=== PATIENT | male | born 1980 | race Caucasian/White ===

== ENCOUNTER 2016-09-30 09:11 | Outpatient (CLI) | payer OTHER ==
[2016-09-30] MEDS ORDERED: IOTHALAMATE MEGLUMINE 50 ML VIAL IU ONE (10:43)
[2016-09-30] MEDS ORDERED: GADOPENTETATE DIMEGLUMINE 5 ML VIAL IVP ONE (10:43)
[2016-09-30] MEDS ORDERED: BUFFERED LIDOCAINE 10 ML SYRINGE IU ONE (10:43)
== END 2016-09-30 09:12 | disposition home or self-care (01) ==
DX: M25.532 Pain in left wrist (principal); S63.592A Other specified sprain of left wrist, initial encounter; M94.8X3 Other specified disorders of cartilage, forearm
CPT/HCPCS: 20610; 73222; 77002; Q9961

== ENCOUNTER 2017-12-05 16:23 | Outpatient (CLI) | payer OTHER ==
--- NOTE | 2017-12-06 13:34 | MRI Report ---
EXAM: MRI LUMBAR SPINE WITHOUT CONTRAST EXAM DATE: 12/05/2017 04:54 PM. CLINICAL HISTORY: Low back pain, other nerve root and plexus disorder. COMPARISON: MRI lumbar spine 04/03/2012. TECHNIQUE: Multiplanar, multisequence T1-weighted and fluid-sensitive sequences of the lumbar spine without contrast. Other: None. FINDINGS: No suspicious marrow replacement has developed in the lumbar vertebral bodies. The distal tip of the conus medullaris is seen at the inferior L1 endplate. Grade 1 retrolisthesis of L5 relative to S1 and loss of disk space height at L5-S1 are stable. T11 through L4: No posterior disk protrusion. L4-L5: A minimal posterior disk protrusion is seen. Superior lateral recess narrowing is present bila terally. This is stable. L5-S1: A shallow foraminal protrusion is seen bilaterally. Mild to moderate left foraminal stenosis i s stable. Disk material in the right foramen has increased and there has been development of mild for aminal stenosis involving the far lateral foramen. There is a far lateral disk protrusion bilaterally . This appears slightly increased on the right. Facet/ligamentum flavum hypertrophy in the mid and lower lumbar spine is stable. A nerve root sleeve cyst at L2-L3 on the left is stable. IMPRESSION: 1. Slight increase in the foraminal and far lateral component to the disk protrusion on the right wit h development of far lateral foraminal stenosis on the right at L5-S1. 2. Foraminal stenosis on left at L5-S1 is stable. 3. Posterior disk protrusion that L4-L5 and L5-S1 are stable. Comment: The following findings are so common in adults without low back pain that while we report th eir presence, they must be interpreted with caution and in the context of the clinical situation. (Re rosamaria Tompkins et al, Spine 2001) Prevalence of findings in patients without low back pain: Disk degeneration (any evidence): 92% Disk desiccation/T2 signal loss: 83% Disk height loss: 56% Disk bulge: 64% Disk protrusion: 32% Annular tear/high intensity zone: 38% [facility] Referring Provider Line: [phone] SITE ID: [id number]
== END 2017-12-05 16:24 | disposition home or self-care (01) ==
LOC: DI 16:23
PROVIDERS: ATTEND Student in an Organized Health Care Education/Training Program
DX: M51.26 Other intervertebral disc displacement, lumbar region (principal); M51.27 Other intervertebral disc displacement, lumbosacral region; M47.896 Other spondylosis, lumbar region; M43.17 Spondylolisthesis, lumbosacral region
CPT/HCPCS: 72148

== ENCOUNTER 2018-02-01 09:52 | Outpatient (CLI) | payer OTHER ==
--- NOTE | 2018-02-02 11:28 | MRI Preliminary Report ---
Exam: MRI THORACIC SPINE W/O Impressions: 1. Unremarkable study as detailed. [facility] SITE ID: [id number]
--- NOTE | 2018-02-02 11:29 | MRI Report ---
EXAM: MRI THORACIC SPINE WITHOUT CONTRAST EXAM DATE: 02/01/2018 11:01 AM. CLINICAL HISTORY: Chronic back pain. COMPARISONS: Prior MRI lumbar spine 12/05/2017, prior MRI thoracic spine 03/31/2016. TECHNIQUE: Multiplanar, multisequence T1-weighted and fluid-sensitive sequences of the thoracic spine from C7 to L1 without contrast. Other: None. Findings: Relevant images are indicated (image number, series number). There is normal alignment of the thoracic spine, there is normal appearance of the thoracic cord. The re is no canal stenosis or neural foramina narrowing, there are no suspicious marrow lesions. There a re no significant degenerative changes of the thoracic spine. There is no thoracic paraspinal mass or collection. Surrounding skeletal muscles are unremarkable. Visualized lung lee are unremarkable. Partly visualized kidneys are unremarkable. There is no juan r-facet edema. Impressions: 1. Unremarkable study as detailed. [facility] Referring Provider Line: [phone] SITE ID: [id number]
== END 2018-02-01 09:53 | disposition home or self-care (01) ==
LOC: DI 09:52
PROVIDERS: ATTEND Orthopaedic Surgery
DX: M54.6 Pain in thoracic spine (principal)
CPT/HCPCS: 72146

== ENCOUNTER 2018-03-15 13:47 | Outpatient (CLI) | payer OTHER ==
--- NOTE | 2018-03-15 20:03 | MRI Report ---
Procedure Date: 03/15/2018 Accession Number: [id number] / [id number] Procedure: MRI - Cervical Spine W/O CPT Code: FULL RESULT: EXAM: MRI CERVICAL SPINE WITHOUT CONTRAST EXAM DATE: 03/15/2018 02:12 PM. CLINICAL HISTORY: CERVICALGIA. COMPARISONS: None. TECHNIQUE: Multiplanar, multisequence T1-weighted and fluid-sensitive sequences of the cervical spine without contrast. Other: None. FINDINGS: Neurologic Structures: The visualized posterior fossa structures are unremarkable. No signal abnormality in the visualized spinal cord. Alignment: Normal alignment. No spondylolisthesis. Bone Marrow: No gross fractures or bone lesions. No marrow edema. Interspace Levels/Facets: C1-C2: Unremarkable. C2-C3: Annular disk bulge with broad-based right paracentral and foraminal disk protrusion with osteophyte formation and uncinate hypertrophy. Mild right greater than left degenerative facet arthropathy. Minimal right foraminal narrowing. Mild effacement of the thecal sac. C3-C4: Disk height loss. Annular disk bulge with broad-based central and right greater than left foraminal protrusions with osteophyte formation and uncinate hypertrophy. Moderate left and mild right facet arthropathy. Annular fissure. Mild central canal stenosis. Moderate right greater than left foraminal stenosis. C4-C5: Mild to moderate degenerative facet arthropathy. No significant stenosis. C5-C6: Annular disk bulge. Superimposed broad-based right paracentral and foraminal disk protrusion and osteophyte formation with small uncinate hypertrophy. Mild facet arthropathy. Slight indentation upon the right anterior aspect of the cervical spinal cord. Moderate central canal stenosis. Moderate right foraminal stenosis. C6-C7: Annular disk bulge with broad-based superimposed left paracentral protrusion and tiny annular fissure. Mild central canal stenosis. Mild left foraminal stenosis. C7-T1: Moderate degenerative facet arthropathy. No stenosis. Musculature: Normal. No edema or fatty atrophy. Other: The paravertebral and prevertebral soft tissues are normal. IMPRESSION: 1. Multilevel cervical degenerative disk and facet arthropathy. 2. C3-C4 mild central canal stenosis. Moderate right greater left foraminal stenosis. 3. C5-C6 moderate central canal stenosis and moderate right foraminal stenosis. 4. C6-C7 mild central canal stenosis and mild left foraminal stenosis. [facility]
== END 2018-03-15 13:48 | disposition home or self-care (01) ==
LOC: DI 13:47
PROVIDERS: ATTEND Orthopaedic Surgery
DX: M50.21 Other cervical disc displacement, high cervical region (principal); M50.31 Other cervical disc degeneration, high cervical region; M47.892 Other spondylosis, cervical region; M48.02 Spinal stenosis, cervical region
CPT/HCPCS: 72141

== ENCOUNTER 2018-03-16 13:02 | Outpatient (CLI) | payer OTHER ==
[2018-03-16] MEDS ORDERED: GADOPENTETATE DIMEGLUMINE 5 ML VIAL IVP ONE (13:49)
[2018-03-16] MEDS ORDERED: IOTHALAMATE MEGLUMINE 50 ML VIAL ONE (13:49)
--- NOTE | 2018-03-16 15:01 | XRAY Report ---
Procedure Date: 03/16/2018 Accession Number: [id number] / [id number] Procedure: FL - Arthrogram Needle Placement CPT Code: FULL RESULT: EXAM: Arthrogram Needle Placement DATE: 03/16/2018 2:45 PM CLINICAL HISTORY: PAIN IN RIGHT SHOULDER Following obtaining informed consent, the patient's right shoulder was prepped and draped in the usual sterile fashion. The skin and soft tissues were anesthetized with lidocaine. A spinal needle was inserted into the glenohumeral joint, and following confirmation of needle positioning, a combination of iodinated contrast, dilute gadolinium, and lidocaine was injected intra-articularly. The patient tolerated the procedure well. No immediate complications. IMPRESSION: Successful fluoroscopic guided injection into the right shoulder for MRI arthrogram. Fluoroscopy time: 34 seconds; one spot image obtained.
--- NOTE | 2018-03-16 22:01 | MRI Report ---
Procedure Date: 03/16/2018 Accession Number: [id number] / [id number] Procedure: MRI - Arthrogram Shoulder RT CPT Code: FULL RESULT: EXAM: RIGHT SHOULDER MRI ARTHROGRAM WITH CONTRAST. EXAM DATE: 03/16/2018 02:41 PM. CLINICAL HISTORY: Pain in right shoulder. COMPARISON: None. TECHNIQUE: Multiplanar, multisequence T1-weighted and fluid-sensitive sequences of the shoulder after an arthrographic injection of dilute gadolinium, dictated under a separate exam. Other: None. FINDINGS: Rotator cuff: Partial thickness contrast filling distal articular surface and insertional tear involving the posterior supraspinatus and upper infraspinatus measuring approximately 1.5 cm anteroposterior and 2 cm medial to lateral. The tear involves slightly greater than 50% of the thickness of the insertion. No full-thickness tear. There is moderate atrophy and fatty replacement of the teres minor muscle. Remaining rotator cuff muscles demonstrate no atrophy. Long head biceps tendon: Thin but intact long head biceps tendon demonstrating normal course, signal and morphology. Labrum: Tiny linear contrast filling tear at the inferior labrum. Remainder of the labrum appears intact. Bones and articular surfaces: No significant articular cartilage defects. Subcortical edema adjacent to the rotator cuff tear. Acromioclavicular joint: Moderate degenerative change. Type II acromion. IMPRESSION: 1. High-grade partial-thickness distal articular surface and insertional tear at the junction of the supraspinatus and infraspinatus measuring 1.5 x 2.0 cm. 2. Moderate atrophy and fatty replacement of the teres minor muscle. 3. Tiny contrast filling tear at the inferior labrum. [facility] MUSCULOSKELET[facility] SECTION
== END 2018-03-16 13:03 | disposition home or self-care (01) ==
LOC: DI 13:02
PROVIDERS: ATTEND Student in an Organized Health Care Education/Training Program
DX: M75.101 Unspecified rotator cuff tear or rupture of right shoulder, not specified as traumatic (principal); S43.491A Other sprain of right shoulder joint, initial encounter; M62.511 Muscle wasting and atrophy, not elsewhere classified, right shoulder
CPT/HCPCS: 23350; 73222; 77002; Q9961

== ENCOUNTER 2018-07-27 06:13 | Day surgery (SDC) | payer OTHER ==
[2018-07-27] MEDS ORDERED: cefTRIAXone 2 GM VIAL ONE ×2 (06:28→12:16)
[2018-07-27] MEDS ORDERED: LACTATED RINGERS 1,000 ML IV ONE ×4 (06:33→13:12)
--- NOTE | 2018-07-27 07:01 | ANESTHESIA ---
Pre-Anesthesia VS, & Labs - Diagnosis Right Shoulder rotator cuff tear, biceps tendonitis - Procedure Right Shoulder arthroscopy, rotator cuff repair, biceps tenodesis Vital Signs: Temp Pulse Resp BP Pulse Ox 36.2 C L 71 18 137/98 H 100 07/27/18 06:39 07/27/18 06:39 07/27/18 06:39 07/27/18 06:39 07/27/18 06:39 Height 6 ft 2 in Weight (kg) 95.71 kg Body Mass Index 28.8 - NPO >8 hours Home Medications and Allergies Home Medications: Ambulatory Orders Cetirizine [ZyrTEC] 10 mg PO DAILY 07/24/18 Omeprazole 20 mg PO PRN 07/24/18 Cetirizine [ZyrTEC] 10 mg PO DAILY 07/24/18 Omeprazole 20 mg PO PRN 07/24/18 Allergies/Adverse Reactions: Allergies Allergy/AdvReac Type Severity Reaction Status Date / Time No Known Drug Allergies Allergy Verified 07/24/18 09:36 Anes History & Medical History - Anesthetic History Anesthesia Complications: reports: No previous complications Family history of Anesthesia Complications: Denies Family history of Malignant Hyperthermia: Denies - Medical History Cardiovascular: reports: None Pulmonary: reports: Sleep apnea (Does not use cpap) Gastrointestinal: reports: GERD (Controlled with meds) Urinary: reports: None Neuro: reports: None Endocrine/Autoimmune: reports: None Skin: reports: None Smoking Status: Never smoker Psychosocial: reports: No issues indicated - Surgical History Orthopedic: Other (Left arm fracture) Exam General: Alert, Oriented x3, Cooperative, No acute distress Dental: WNL Mouth Openin Fingerbreadth Neck Mobility: Normal Mallampati classification: II Thyromental Distance: 4-6 cm Respiratory: Lungs clear, Normal breath sounds, No respiratory distress, No accessory muscle use Cardiovascular: Regular rate, Normal S1, Normal S2, No murmurs Mental/Cognitive Status: Alert/Oriented X3, Normal for patient Cognitive Status: Within normal limits Plan Anesthesia Type: General, Interscalene Block (Right ISB) Regional Block: Per Surgeon's request for Post Op pain control Consent for Procedure(s) Verified and Reviewed: Yes Code Status: Attempt Resuscitation ASA classification: 2-Mild systemic disease Is this case an emergency?: No
[2018-07-27] MEDS ORDERED: EPINEPHrine 1 MG/ML AMP ONE ×2 (08:20→09:45)
[2018-07-27] MEDS ORDERED: ePHEDrine 50 MG/ML VIAL IVP ONE (08:56)
[2018-07-27] MEDS ORDERED: DEXAMETHASONE 4 MG/ML VIAL IVP ONE (08:56)
[2018-07-27] MEDS ORDERED: PROPOFOL 200 MG/20 ML VIAL IVP ONE (08:56)
[2018-07-27] MEDS ORDERED: MIDAZOLAM 2 MG/2 ML VIAL IVP ONE (08:56)
[2018-07-27] MEDS ORDERED: ROPIVACAINE 0.5% PF 20 ML AMPULE EP ONE (08:56)
[2018-07-27] MEDS ORDERED: ONDANSETRON 4 MG/2 ML VIAL IVP ONE (08:56)
[2018-07-27] MEDS ORDERED: ROCURONIUM 50 MG/5 ML VIAL IVP ONE (08:56)
[2018-07-27] MEDS ORDERED: fentaNYL 100 MCG/2 ML VIAL IVP ONE (08:56)
[2018-07-27] MEDS ORDERED: BUPIVACAINE 0.25% PF 30 ML VIAL ONE (08:59)
[2018-07-27] MEDS ORDERED: BUPIVACAINE 0.5% PF 30 ML VIAL SUBQ ONE (10:03)
[2018-07-27] MEDS ORDERED: EPINEPHrine 1 MG/1 ML 30 ML MDV IVP ONE (10:04)
[2018-07-27] MEDS ORDERED: EPINEPHrine 1 MG/1 ML 30 ML MDV IV ONE (10:04)
[2018-07-27] MEDS ORDERED: BUPIVACAINE 0.25% PF 30 ML VIAL SUBQ ONE (12:20)
[2018-07-27] MEDS ORDERED: ONDANSETRON 4 MG/2 ML VIAL IVP PRN (12:42)
[2018-07-27] MEDS ORDERED: oxyCODONE 5 MG TABLET PO PRN (12:42)
[2018-07-27] MEDS: HYDROmorphone 1 MG/ML CARPUJECT ONE ×2 (13:09→13:21)
[2018-07-27] MEDS ORDERED: oxyCODONE 5 MG TABLET ONE (14:13)
[2018-07-27 14:42] VITALS: BP 123/80
--- NOTE | 2018-07-27 15:29 | OPERATIVE REPORT ---
Operative Report - General Planned Procedure: Right rotator cuff repair. Right biceps tenodesis Pre-Op Diagnosis: Right rotator cuff tear. Right biceps tendinitis Procedure Performed: Arthroscopic right shoulder subacromial decompression and diagnostic arthroscopy. Mini open right rotator cuff repair. Mini open right biceps tenodesis Post Op Diagnosis: Same - Procedure Note Primary Surgeon: Chel Secondary Surgeon: Sundeep ROSARIO Estimated Blood Loss (mL): 50 Complications: None - Other Other Information/Narrative: DETAILED PROCEDURE: Right shoulder diagnostic arthroscopy Right shoulder subacromial decompression Right shoulder mini open rotator cuff repair Right shoulder mini open biceps tenodesis IMPLANTS: Arthrex corkscrew x2 Arthrex swivel lock x2 Arthrex fiber leak x1 Arthrex suture tack x1 POSTOPERATIVE PLAN: 0-2 weeks-Sling at all times. Pendulum exercises 5 times per day. 2-6 weeks-Passive range of motion with the following limits: FF to 90, ER to unlimited, abduction to 90 6-12 weeks-Active range of motion in all planes without limitation. Isometric rotator cuff strengthening is allowed 12-16 weeks-Gradually increase strengthening 16 weeks and beyond-Introduce dynamic activities EXAMINATION UNDER ANESTHESIA: ROM: Full Anterior load and shift: Stable Posterior load and shift: Stable Inferior sulcus: Stable ARTHROSCOPIC FINDINGS: Rotator interval: Intact Biceps tendon & SLAP: Type II SLAP tear with biceps tendon diminutive Subscapularis: Intact Rotator Cuff: Tear of 70% of the infraspinatus extending to teres minor. The posterior portion of supraspinatus was also torn. The tear was completed and repaired with a double row HAGL: None Labrum: Circumferential crack was seen but the labrum was stable Glenoid Cartilage: Soft but intact Humeral Head Cartilage: Intact INDICATION FOR SURGERY: 38-year-old male with over 1 year of shoulder pain weakness. He has failed nonoperative treatment to include physical therapy and injections. His examination and MRI showed a rotator cuff tear.. Nonoperative managment failed to resolve symptoms. The risks, benefits, and alternatives were discussed. Risks included pain, bleeding, infection, damage to nearby structures, lack of symptom relief, implant complications, stiffness, need for further surgeries, DVT, PE, stroke, and even . He signed a written consent form. PROCEDURE IN DETAIL: The patient was met in the preoperative holding on the day of the procedure. Operative extremity was signed. Consent was verified. He desired to proceed. Regional anesthesia was obtained in the preoperative area. He was brought to the operating room and surrendered to anesthesia. Once gene ral anesthesia was obtained he was placed in the beachchair position. All bony prominences were well-padded. He was then prepped and draped in the standard sterile fashion. A surgical timeout was held to confirm the patient procedure, identity, procedure, laterality, allergies, images, and antibiotics. All were in agreement we proceeded. I then removed all instruments and placed the trocar into the subacromial space just under the acromion. The camera was then placed there. A sucker shaver was brought in from the anterior superior portal site and a bursectomy with subacromial decompression was performed. Identified to the rotator cuff tear the posterior aspect and created an anterolateral and posterior lateral portal sites. I began to complete the tear with the sucker shaver and radiofrequency ablation 1 but found that the deltoid was significantly limiting my visibility in making the procedure unsafe. I therefore decided to perform an open rotator cuff repair. I kevon a line 5 cm off the acromial edge and did not work beyond that. I extended the anterolateral incision site to that line and split the deltoid in line with its fibers. Gelpi retractors were placed deep to the deltoid. Identified the rotator cuff tear and released the remaining bursal fibers of the infraspinatus using a knife with a scratch technique. The fibers released very easily. The full-thickness tear was easily identifiable. I then debrided all unhealthy portions of the tendon. I then used a rasp and a bur to create a bleeding bed of bone on the greater tuberosity. I then placed my medial row anchors just off the articular margin and passed each limb in a horizontal fashion technique utilizing the scorpion to set the correct depth. I pulled on the sutures and this reduced the tendon nicely. I placed a fiber link anteriorly to prevent any dog ears. I then pulled traction on the sutures and tied posteriorly to anteriorly finding the tendon to reduce very nicely. I then marked out my lateral row and placed to swivel locks with a 1 suture from each knot. This compressed the cuff very nicely. The cuff moved with the humerus as one unit. Final pictures were taken. I then irrigated copiously and closed in a layered fashion. The fascia was closed with 0 Vicryl the dermis with 2-0 Vicryl and the skin with Monocryl. I then proceeded to the biceps tenodesis. A 4 cm incision was made centered over the pectoralis major tendon. Sharp dissection was brought down to the fascia. Finger dissection was brought down to the biceps tendon it was identified in the groove. I delivered it from the wound with my finger. A hurley elevator was used to abrade the bicipital groove. A fiber tack was then placed centrally high in the groove and was found to have excellent purchase with the ability to pull the entire arm and pull on the sutures. I then ran a whipstitch from 2 cm off of the musculotendinous junction down to the muscle and back up. With the other limb I placed in a single pass through. I ensured the tendon would lay flat and the knot would be on top of it. I then cut the excess tendon and reduced the tendon down to the suture anchor. A reverse half inches alternating posts were used to secured and the sutures were cut with talus. I irrigated the wound and closed it with 2-0 Vicryl in the dermis and a running Monocryl the skin. 10 cc of quarter percent Marcaine was placed around the biceps incision. Sterile dressings were applied and a sling was placed. He was awakened and transferred to recovery.
== END 2018-07-27 06:14 | disposition home or self-care (01) ==
LOC: SDS 06:13
PROVIDERS: ATTEND Orthopaedic Surgery
PROC: 0RNJ0ZZ Release Right Shoulder Joint, Open Approach (ICD-10-PCS; 2018-07-27)
PROC: 0LS30ZZ Reposition Right Upper Arm Tendon, Open Approach (ICD-10-PCS; 2018-07-27)
PROC: 0LM10ZZ Reattachment of Right Shoulder Tendon, Open Approach (ICD-10-PCS; principal; 2018-07-27 07:30)
PROC: 0RHJ04Z Insertion of Internal Fixation Device into Right Shoulder Joint, Open Approach (ICD-10-PCS; 2018-07-27 07:30)
DX: S43.431D Superior glenoid labrum lesion of right shoulder, subsequent encounter (principal); M75.21 Bicipital tendinitis, right shoulder; X58.XXXD Exposure to other specified factors, subsequent encounter; F17.220 Nicotine dependence, chewing tobacco, uncomplicated; K21.9 Gastro-esophageal reflux disease without esophagitis; G47.30 Sleep apnea, unspecified; M75.111 Incomplete rotator cuff tear or rupture of right shoulder, not specified as traumatic; Z79.891 Long term (current) use of opiate analgesic
CPT/HCPCS: 23420; 24340; A9270; C1713; J1170; J7120

== ENCOUNTER 2018-11-17 09:35 | Outpatient (CLI) | payer OTHER ==
[~2018-11-17 09:35] MED LIST: BUFFERED LIDOCAINE 10 ML SYRINGE ONE; GADOPENTETATE DIMEGLUMINE 5 ML VIAL IVP ONE; IOTHALAMATE MEGLUMINE 50 ML VIAL ONE
[2018-11-17] MEDS ORDERED: IOTHALAMATE MEGLUMINE 50 ML VIAL IVP ONE (11:50)
[2018-11-17] MEDS ORDERED: BUFFERED LIDOCAINE 10 ML SYRINGE IU ONE (11:50)
[2018-11-17] MEDS ORDERED: GADOPENTETATE DIMEGLUMINE 5 ML VIAL IVP ONE (11:50)
--- NOTE | 2018-11-17 13:32 | XRAY Report ---
Reason: PAIN IN UNSPECIFIED SHOULDER Procedure Date: 11/17/2018 Accession Number: [id number] / [id number] Procedure: FL - Arthrogram Needle Placement CPT Code: FULL RESULT: EXAM: RIGHT SHOULDER ARTHROGRAPHIC INJECTION WITH FLUOROSCOPIC GUIDANCE EXAM DATE: 11/17/2018 10:07 AM. CLINICAL HISTORY: PAIN IN UNSPECIFIED SHOULDER. COMPARISON: ARTHROGRAM SHOULDER RT 11/17/2018 10:18 AM. TECHNIQUE: The risks, benefits, and alternatives of the procedure were discussed with the patient. All questions were answered. Written and verbal consent were obtained. The glenohumeral joint was marked under fluoroscopy and prepped and draped in a sterile manner. Local anesthesia was performed with 1% lidocaine. A 22-gauge needle was then inserted into the glenohumeral joint. 10 mL of a solution containing 25% 1% lidocaine, 25% iodinated contrast, and a 1:200 dilution of gadolinium contrast in sterile saline was then injected. The needle was removed without immediate complication. Other: None. Fluoroscopy Time: 4 seconds. Number of Images: 6. FINDINGS: Bones and joints: No fracture or subluxation. Injection: Fluoroscopic images demonstrate needle placement and contrast in the glenohumeral joint. There is contrast extravasation outside of the glenohumeral joint. IMPRESSION: Successful fluoroscopically guided arthrographic injection of the shoulder. [facility]
--- NOTE | 2018-11-17 18:13 | MRI Report ---
Reason: INJURY CHRONIC NON STOP PAIN,R FOOT Procedure Date: 11/17/2018 Accession Number: [id number] / [id number] Procedure: MRI - Foot RT W/O CPT Code: FULL RESULT: EXAM: RIGHT ANKLE/HINDFOOT MRI WITHOUT CONTRAST EXAM DATE: 11/17/2018 10:57 AM. CLINICAL HISTORY: Injury chronic nonstop pain, right foot. COMPARISON: None. TECHNIQUE: Multiplanar, multisequence T1-weighted and fluid-sensitive sequences of the ankle/hindfoot without contrast. Other: None. FINDINGS: Bones: No fractures or subluxations. No marrow edema. No bone lesions. Articular Cartilage: Unremarkable. Ligaments: The anterior and posterior tibiofibular, anterior and posterior talofibular, and calcaneofibular ligaments are intact. There is mild increased T2 signal in the amount of the deltoid ligament, fibers however appear intact. Superficial bundle and spring ligament appear unremarkable. Anterior Tendons: The tibialis anterior, extensor hallucis longus, and extensor digitorum longus tendons are unremarkable. Medial Tendons: The tibialis posterior, flexor digitorum longus, and flexor hallucis longus tendons are unremarkable. Lateral Tendons: The peroneus brevis and longus are unremarkable. Achilles Tendon: The Achilles tendon is unremarkable. Musculature: No edema or fatty atrophy. Other: No effusions. Sinus tarsus show some increased T2 signal with normal structures. Tarsal tunnel appears normal. No plantar fasciitis. The subcutaneous tissues are unremarkable. IMPRESSION: 1. Medial lateral collateral ligament complexes appear intact. The bundle of the deltoid ligament shows some increased T2 signal, of doubtful consequence. Lateral collateral ligament complex is normal. 2. Tendons and plantar flexion and anteflexion appear unremarkable. 3. There is a small amount of increased T2 signal in the sinus tarsi which is nonspecific but can be associated with synovitis. [facility]CUL[facility] SECTION
--- NOTE | 2018-11-17 20:12 | MRI Report ---
Reason: PAIN IN UNSPECIFIED SHOULDER Procedure Date: 11/17/2018 Accession Number: [id number] / [id number] Procedure: MRI - Arthrogram Shoulder RT CPT Code: FULL RESULT: EXAM: RIGHT SHOULDER MRI ARTHROGRAM WITH CONTRAST EXAM DATE: 11/17/2018 11:11 AM. CLINICAL HISTORY: Pain in unspecified shoulder. COMPARISON: ARTHROGRAM SHOULDER RT 03/16/2018 1:05 PM. TECHNIQUE: Multiplanar, multisequence T1-weighted and fluid-sensitive sequences of the shoulder after an arthrographic injection of dilute gadolinium, dictated under a separate exam. Other: None. FINDINGS: Acromioclavicular Region: The acromion is type II. The acromioclavicular joint is unremarkable. The coracoacromial and coracoclavicular ligaments are intact. There is no contrast or fluid in the subacromial/subdeltoid bursa. Glenohumeral Region: No subluxation. No loose bodies. The articular cartilage is unremarkable. The glenohumeral ligaments and joint capsule are unremarkable. Bone Marrow: No fracture, marrow edema or bone lesions. Labrum: Inferior labrum tear as previously described. Biceps Tendon: Complete tear with retraction proximal biceps tendon. Musculature/Rotator Cuff: Negative for rotator cuff tear. Severe atrophy of teres minor muscle as previously described. Negative for atrophy subscapularis muscle, supraspinatus muscle, or infraspinatus muscle. Other: The subcutaneous tissues are unremarkable. IMPRESSION: 1. Interval proximal biceps tendon tear with retraction. 2. Negative for rotator cuff tear. [facility] MUSCULOSKELET[facility]OLOGY SECTION
== END 2018-11-17 09:36 | disposition home or self-care (01) ==
LOC: DI 09:35
PROVIDERS: ATTEND Orthopaedic Surgery
DX: S46.211A Strain of muscle, fascia and tendon of other parts of biceps, right arm, initial encounter (principal); S99.921A Unspecified injury of right foot, initial encounter; M79.671 Pain in right foot
CPT/HCPCS: 23350; 73222; 73718; 77002; Q9961

== ENCOUNTER 2018-11-17 09:52 | Outpatient (CLI) | payer OTHER | END 2018-11-17 09:53 | disposition home or self-care (01) | LOC: DI 09:52 | PROVIDERS: ATTEND Podiatrist | DX: Z53.9 Procedure and treatment not carried out, unspecified reason (principal) ==

== ENCOUNTER 2019-05-28 17:57 | Emergency (ER) | payer OTHER ==
--- NOTE | 2019-05-28 19:01 | XRAY Report ---
Reason: Chest Pain Procedure Date: 05/28/2019 Accession Number: [id number] / [id number] Procedure: XR - Chest 1 View X-Ray CPT Code: 43981 FULL RESULT: EXAM: CHEST RADIOGRAPHY EXAM DATE: 05/28/2019 06:25 PM. CLINICAL HISTORY: Chest Pain. Shortness of breath. Elevated blood pressure. COMPARISON: None. TECHNIQUE: 1 view. FINDINGS: Lungs/Pleura: No focal opacities evident. No pleural effusion. No pneumothorax. Mediastinum: Within exam limitations, the cardiomediastinal contour is normal. Other: None. IMPRESSION: Normal single view chest. [facility]
[2019-05-28 19:19] LABS: BASOPHILS % (AUTO) 0.4 %; EOSINOPHILS # (AUTO) 0.2 10^3/uL (0.0-0.7); EOSINOPHILS % (AUTO) 3.3 %; HGB - HEMOGLOBIN 14.6 g/dL (14.0-18.0); LYMPHOCYTES # (AUTO) 1.5 10^3/uL (1.5-3.5); LYMPHOCYTES % (AUTO) 29.7 %; MEAN CORPUSCULAR HEMOGLOBIN 30.4 pg (27.0-31.0); MEAN CORPUSCULAR HGB CONC 34.4 g/dL (32.0-36.0); MEAN CORPUSCULAR VOLUME 88.3 fL (80.0-94.0); MEAN PLATELET VOLUME 9.8 fL (7.4-11.4); MONOCYTES # (AUTO) 0.4 10^3/uL (0.0-1.0); MONOCYTES % (AUTO) 7.9 %; NEUTROPHILS % (AUTO) 58.5 %; PLT - PLATELET COUNT 175 10^3/uL (130-450); RED CELL DISTRIBUTION WIDTH 13.3 % (12.0-15.0); WHITE BLOOD COUNT 5.2 x10^3/uL (4.8-10.8)
[2019-05-28 19:33] LABS: ALBUMIN 4.4 g/dL (3.2-5.5); ALBUMIN/GLOBULIN RATIO 1.4 (1.0-2.2); BILIRUBIN,TOTAL 0.7 mg/dL (0.2-1.0); CALCIUM 9.4 mg/dL (8.5-10.3); CREATININE 1.1 mg/dL (0.6-1.2); TOTAL PROTEIN 7.6 g/dL (6.7-8.2)
--- NOTE | 2019-05-28 19:50 | ED Physician Documentation ---
PD HPI CHEST PAIN - Stated complaint Stated Complaint: HIGH BP/TIGHTNESS IN CHEST - Chief complaint Chief Complaint: Cardiac - History obtained from History obtained from: Patient - History of Present Illness Timing - onset: Today Timing - onset during: Rest Timing - duration: Days (1) Timing - details: Gradual onset Pain level max: 2 Pain level now: 1 Quality: Tightness. No: Aching, Sharp, Tearing, Dull, Stabbing, Throbbing, Indigestion, Like prior ACS Radiation: No: Jaw, Neck, Back, Abdominal, Left upper extremity, Right upper extremity Improved by: Nothing Worsened by: Other (nothing) Associated symptoms: Other (states feels like he "has to think to breathe"). No: Shortness of air, Diaphoresis, Nausea, Vomiting, Feeling faint / dizzy, Gene ral Weakness, Palpitations, Cough Similar symptoms before: Has not had sx before Recently seen: Not recently seen - Additional information Additional information: has also felt jittery today. Review of Systems Ten Systems: 10 systems reviewed and negative Constitutional: denies: Fever, Chills Nose: denies: Rhinorrhea / runny nose, Congestion Respiratory: denies: Cough GI: denies: Vomiting, Diarrhea Skin: denies: Rash Musculoskeletal: denies: Neck pain, Back pain Neurologic: denies: Focal weakness, Numbness, Headache PD PAST MEDICAL HISTORY - Past Medical History Cardiovascular: None Respiratory: Sleep apnea (Does not use cpap) Neuro: None Endocrine/Autoimmune: None GI: GERD (Controlled with meds) : None HEENT: None Psych: None Musculoskeletal: Other Derm: None - Past Surgical History Ortho: Other (Left arm fracture) - Present Medications Home Medications: Ambulatory Orders Medication Instructions Recorded Confirmed Cetirizine [ZyrTEC] 10 mg PO DAILY 07/24/18 07/27/18 Omeprazole 20 mg PO DAILY 07/24/18 07/27/18 - Allergies Allergies/Adverse Reactions: Allergies Allergy/AdvReac Type Severity Reaction Status Date / Time No Known Drug Allergies Allergy Verified 05/28/19 18:15 - Social History Smoking Status: Never smoker PD ED PE NORMAL - Vitals Vital signs reviewed: Yes - General General: Alert and oriented X 3, No acute distress, Well developed/nourished - HEENT HEENT: Moist mucous membranes - Neck Neck: Supple, no meningeal sign - Cardiac Cardiac: RRR, Strong equal pulses - Respiratory Respiratory: No respiratory distress, Clear bilaterally - Abdomen Abdomen: Soft, Non tender, Non distended - Back Back: No spinal TTP - Derm Derm: Warm and dry - Extremities Extremities: No calf tenderness / cord - Neuro Neuro: Alert and oriented X 3 - Psych Psych: Normal mood, Normal affect Results - Vitals Vitals: Oxygen O2 Source Room air - EKG (time done) 1812 Rate: Rate (enter#) (75) Rhythm: NSR [place]: Normal Intervals: Normal ND QRS: Normal Ischemia: Normal ST segments - Labs Labs: Laboratory Tests 05/28/19 05/28/19 05/28/19 19:15 19:15 19:15 WBC 5.2 RBC 4.80 Hgb 14.6 Hct 42.4 MCV 88.3 MCH 30.4 MCHC 34.4 RDW 13.3 Plt Count 175 MPV 9.8 Neut # (Auto) 3.0 Lymph # (Auto) 1.5 Gillespie # (Auto) 0.4 Eos # (Auto) 0.2 Baso # (Auto) 0.0 Absolute Nucleated RBC 0.00 Nucleated RBC % 0.0 Sodium 139 Potassium 3.7 Chloride 98 L Carbon Dioxide 30 Anion Gap 11.0 BUN 14 Creatinine 1.1 Estimated GFR (MDRD) 74 L Glucose 100 Calcium 9.4 Total Bilirubin 0.7 AST 39 ALT 65 H Alkaline Phosphatase 58 Troponin I High Sens 3.4 Total Protein 7.6 Albumin 4.4 Globulin 3.2 Albumin/Globulin Ratio 1.4 Lipase 32 - Rads (name of study) cxr Radiology: Prelim report reviewed, EMP read contemporaneously, See rad report (no acute disease) PD MEDICAL DECISION MAKING - ED course Complexity details: reviewed results, re-evaluated patient, considered di fferential (No ST elevation [place], no aortic dissection, no PE, no tension pneumothorax, no aortic aneurysm), d/w patient ED course: 39-year-old male presents to the emergency department with atypical chest pain symptoms. Unclear etiology. Symptoms resolved in the emergency department. Possible related to caffeine use today? No arrhythmia. No acute coronary syndrome. Patient counseled regarding signs and symptoms for which I believe and urgent re-evaluation would be necessary. Patient with good understanding of and agreement to plan and is comfortable going home at this time This document was made in part using voice recognition software. While efforts are made to proofread this document, sound alike and grammatical errors may occur. Departure - Departure Disposition: 01 Home, Self Care Clinical Impression: Chest pain Qualifiers: Chest pain type: unspecified Qualified Code(s): R07.9 - Chest pain, unspecified Condition: Stable Instructions: ED Chest Pain Atypical Unkn Cause Follow-Up: Chandni Garcia MD [Primary Care Provider] - Within 1 week Comments: The cause of your symptoms is unclear today. Follow-up with your doctor for further care. Return if you worsen. Discharge Date/Time: 05/28/19 20:37
[2019-05-28 20:36] VITALS: BP 156/109
== END 2019-05-28 20:37 | disposition home or self-care (01) ==
LOC: ED 17:57
DX: R07.89 Other chest pain (principal)
CPT/HCPCS: 36415; 71045; 80053; 83690; 84484; 85025; 93005; 99284

== ENCOUNTER 2019-07-20 13:35 | Outpatient (CLI) | payer OTHER ==
[2019-07-20] MEDS ORDERED: GADOBUTROL 7.5 MMOL/7.5 ML VIAL ONE (13:58)
[2019-07-20] MEDS ORDERED: IOTHALAMATE MEGLUMINE 50 ML VIAL ONE (13:58)
[2019-07-20] MEDS ORDERED: BUFFERED LIDOCAINE 10 ML SYRINGE ONE (13:59)
[2019-07-20] MEDS ORDERED: IOTHALAMATE MEGLUMINE 50 ML VIAL IVP ONE (14:58)
[2019-07-20] MEDS ORDERED: GADOBUTROL 7.5 MMOL/7.5 ML VIAL IVP ONE (14:58)
[2019-07-20] MEDS ORDERED: BUFFERED LIDOCAINE 10 ML SYRINGE IU ONE (14:58)
--- NOTE | 2019-07-20 16:43 | XRAY Report ---
Reason: PAIN IN LEFT SHOULDER Procedure Date: 07/20/2019 Accession Number: [id number] / [id number] Procedure: FL - Arthrogram Needle Placement CPT Code: Final Report FULL RESULT: EXAM: LEFT SHOULDER ARTHROGRAPHIC INJECTION WITH FLUOROSCOPIC GUIDANCE EXAM DATE: 07/20/2019 02:54 PM. CLINICAL HISTORY: PAIN IN LEFT SHOULDER. COMPARISON: UPPER JOINT LEFT W/O 03/31/2016 1:35 PM LEFT SCAPULA W/O 03/31/2016 1:44 PM ARTHROGRAM SHOULDER LT 07/20/2019 2:58 PM. TECHNIQUE: The risks, benefits, and alternatives of the procedure were discussed with the patient. All questions were answered. Written and verbal consent were obtained. The left glenohumeral joint was marked under fluoroscopy and prepped and draped in a sterile manner. Local anesthesia was performed with 1% lidocaine. A 22-gauge needle was then inserted into the glenohumeral joint. 10 mL of a solution containing 25% 1% lidocaine, 25% iodinated contrast, and a 1:200 dilution of gadolinium contrast in sterile saline was then injected. The needle was removed without immediate complication. Other: None. Fluoroscopy Time: 48 seconds. Number of Images: 2. FINDINGS: Bones and joints: No fracture or subluxation. Injection: Fluoroscopic images demonstrate needle placement and contrast in the glenohumeral joint. No contrast extravasation outside of the glenohumeral joint. IMPRESSION: Successful fluoroscopically guided arthrographic injection of the left shoulder. RADIA
--- NOTE | 2019-07-20 17:57 | MRI Report ---
Reason: PAIN IN LEFT SHOULDER Procedure Date: 07/20/2019 Accession Number: [id number] / [id number] Procedure: MRI - Arthrogram Shoulder LT CPT Code: Final Report FULL RESULT: EXAM: LEFT SHOULDER MRI ARTHROGRAM WITH CONTRAST EXAM DATE: 07/20/2019 03:27 PM. CLINICAL HISTORY: Left shoulder pain and limited range of motion. COMPARISON: None. TECHNIQUE: Multiplanar, multisequence T1-weighted and fluid-sensitive sequences of the shoulder after an arthrographic injection of dilute gadolinium, dictated under a separate exam. Other: None. FINDINGS: Acromioclavicular Region: The acromion is type II. The acromioclavicular joint is unremarkable. The coracoacromial and coracoclavicular ligaments are intact. There is no contrast or fluid in the subacromial/subdeltoid bursa. Glenohumeral Region: No subluxation. No loose bodies. The articular cartilage is unremarkable. The glenohumeral ligaments and joint capsule are unremarkable. Bone Marrow: Small bone island at the posterior medial aspect of the humeral head. No acute fracture. No marrow edema. Labrum: There is a probable sublabral foramen variant at that anterosuperior aspect of the labrum. Otherwise, the labrum is unremarkable. Biceps Tendon: The long head of the biceps tendon and biceps zeus are intact. Musculature/Rotator Cuff: The subscapularis, supraspinatus, infraspinatus, and teres minor tendons are intact. No edema or fatty atrophy. Other: The subcutaneous tissues are unremarkable. IMPRESSION: No MRI abnormalities in the shoulder. RADIA
== END 2019-07-20 13:36 | disposition home or self-care (01) ==
LOC: DI 13:35
PROVIDERS: ATTEND Student in an Organized Health Care Education/Training Program
DX: M25.512 Pain in left shoulder (principal)
CPT/HCPCS: A9585; Q9961; 77002

== ENCOUNTER 2019-11-05 12:46 | Outpatient (CLI) | payer OTHER ==
[2019-11-05 14:03] VITALS: BP 110/74
--- NOTE | 2019-11-05 14:03 | SLEEP CARE CONSULTATION ---
Information from patient questionnaire entered by Jodi Yanes. I have reviewed and concur with the information entered by Jodi Yanes. This document represents the service I personally performed and the decisions made by me, Felicia Llanos, RN, MSN, WATER TREATMENT TECHNICIAN. History of Present Illness Reason for Visit: New patient, Previously diagnosed sleep apnea (AHI 8.9), Re- establish care (has not used machine in over year) Chief Complaint: reports: Unrefreshed sleep, Snoring, Excessive daytime sleepin ess, Observed pauses in breathing, Fatigue, Frequent awakenings at night, Other (needs new prescription to update supplies) Duration of Symptoms: 09/2008 Usual bedtime: 2200 Time it takes to fall asleep: 10 minutes Snores at night: Yes Observed to quit breathing while asleep: Yes Sleeps alone due to snoring: No Number of times waking at night: 20 Reasons for waking at night: reports: Choking, Snoring, Gasping for air (occasionally ), Pain (bilateral shoulders- multiple surgeries and PT ). denies: Bathroom Toss, Turn, or Twitch while sleeping: Yes Recalls having dreams: Yes Usually gets out of bed at: 0500 Feels refreshed in the morning: No Morning headache: No Sleepy or fatigued during the day: Yes Ever fallen asleep while driving: Yes Takes day naps: No Dreams during day naps: No Prior sleep studies: Yes Year and Where: [facility] - Parasomnia Symptoms Ever been unable to move upon waking from sleep: Yes (when he sleeps prone with arms to side occasionally/last episode2 weeks ago) Walks in sleep: No Talks in sleep: Yes Ever acted out dreams in sleep: Yes (rarely - last time unknown) Ever felt weak in the knees when startled or emotional: No Bothered by creepy, crawly, restless sensations in legs: Yes Problems with memory or concentration: Yes CPAP Compliance Data - Data Reviewed with Patient Compliance rate %: 0 (last used CPAP 04/20/18 ) Current pressure setting (cmH2O): 14 Average residual AHI: 7.4 Central apnea: 3.3 Obstructive apnea: 3.3 Hypopnea: 0.7 Subjective Patient concerns: reports: mask discomfort, air blowing in eyes, nasal congestion, dry mouth, nose, throat Current pressure setting perceived as: too high On therapy, patient: reports: sleeping better, more rested overall (a little more rested ) Initial Hammond Sleepiness Scale score: 15 Past Medical History Past Medical History: reports: Hypertension, GERD (shoulder surgery 3 times and left wrist surgery in the past 2 years ) Social History The patient's occupation is active . Patient is and lives in [place]. Have you smoked in the past 12 months: No Alcohol use: No Caffeine use: Yes Caffeine amount and frequency: 0-1 cup a day Family History Family Hx Sleep Apnea: Mother: Snoring, Sleep apnea - Treated Allergies and Home Medications Known drug allergies: No Home medication list reviewed: Yes Allergy and home medication list: losartan 10mg daily omeprazole 20mg daily Zyrtec 10mg daily Review of Systems Review of systems same as previous: No Weight gain over past 5 years: 15 Cardiovascular: reports: high blood pressure. denies: palpitations, chest pain, irregular heart rate or pulse, leg or foot swelling Respiratory: denies: shortness of breath, wheeze, sputum production, chronic cough Gastrointestinal: reports: heartburn. denies: difficulty swallowing, nausea, vomitting, diarrhea, abdominal pain Urinary: denies: incontinence, frequency, urgency, impotence, other Neurological: denies: headaches, seizure, head trauma, disorientation, speech dysfunction, gait or balance problems, fainting or unconsciousness, other Psychiatric: denies: Attention Deficit Hyperactivity, anxiety, depression, mood disorder, claustrophobia, other Ear/Nose/Throat: reports: nose bleeds (dryness of environment when in desert), wisdom teeth removed Endocrine: reports: sluggishness. denies: thyroid disease, history of goiter, too hot or cold, excessive thirst, increased appetite, increased urination, unexplained weakness, other Musculoskeletal: reports: joint pain, neck pain, back pain, joint swelling. denies: muscle pain or cramping, mobility problems, other Immunologic: reports: sneezing, allergies to food or environment. denies: rash (seasonal ), itching, other Physical Exam Blood Pressure: 110/74 Heart Rate: 75 O2 Saturation: 96 Height: 6 ft 1.8 in Weight: 232 lb Body Mass Index: 29.9 BMI Classification: Overweight Neck circumference: 17 HEENT: No craniofacial malformation Nostrils: patent to airflow Turbinates: swollen Septum: midline Mouth and throat: narrow oropharynx Soft palate: long Hard palate: normal Uvula: normal Uvula visualization: 50% Mallampati Class II Tongue: enlarged in size with teeth [place] on lateral edges Tonsils: small Chin and jaw: normal size and position Neck: normal w/o lymphadenopathy or thyromegaly Heart: regular rate and rhythm Lungs: clear bilaterally Extremities: no edema or clubbing Neurologic: intact (grossly intact ) Impression and Plan 1. Suspected Obstructive Sleep Apnea-Hypopnea Syndrome, as previously diagnosed, currently not treated, suggested by a history of loud and irregular snoring, observed cessation of breath while asleep, gasping or choking in sleep, and excessive daytime sleepiness. As noted above, patient was diagnosed with mild apnea in 2009. He has struggled to use CPAP due to mask and pressure discomfort. Last used in April 2018. Narrow oropharynx and obesity are common predisposing factors for obstructive sleep apnea-hypopnea syndrome. Essential hypertension can be caused by obstructive sleep apnea. GERD can also I recommend proceeding to polysomnography to confirm the diagnosis and to assess severity. If the patient has significant sleep disordered breathing, a manual CPAP titration study will also be performed to find the optimal treatment pressure. I informed the patient of what the sleep studies involve and after some discussion, obtained agreement to proceed. The pathophysiology of obstructive sleep apnea- hypopnea syndrome was discussed with the patient and health risks of ca rdiovascular and cerebrovascular disease if not treated. AAS brochure for obstructive sleep apnea-hypopnea syndrome given and reviewed. Risks of drowsy driving discussed in detail and patient advised to avoid long distance driving and to car repairer pullman at the first sign of drowsiness. Patient agreed to plan. For his nasal dryness and recurrent mild epitaxis from recent [place] trip I gave him a sample of saline nasal spray to use for added moisture a few times a day as well as a couple of Candida Ease nasal cream samples with printed information about product and instructions for use 4 times day for 7-10 days. 2. Restless Leg Syndrome (RLS): as exhibited by an urge to move the legs and generally involves symptoms of uncomfortable and unpleasant sensations. Symptoms usually begin or worsen with inactivity or periods of rest such as sitting or lying down. These symptoms can be partially or completely relieved with movement such as stretching, walking or other movement. Generally they occur late in the evening or at bedtime. Sometimes the urge to move legs can be without discomfort or involve the arms and other parts of the body. Symptoms can cause patient concern and difficulty initiating sleep affecting daytime functioning. RLS is a sensorimotor disorder that can be hereditary and is often associated with PLMS periodic limb movement of sleep. It can also be secondary to mild iron deficiency (serum ferritin less than 50mcg - 75mcg/L) and magnesium deficiencies. Other medical conditions associated with RLS are narcolepsy, migraine headaches, chronic obstructive pulmonary disease, Parkinson disease, multiple sclerosis, peripheral neuropathy, obstructive sleep apnea, diabetes mellitus, fibromyalgia, rheumatoid arthritis, nocturnal eating, obesity, thyroid disease and heart disease and renal failure as well as mood disorders and ADHD. Also, medications such as most antidepressants with exception of bupropion, some centrally active dopamine receptor antagonists, sedating antihistamines such as Benadryl can precipitate or aggravate this disorder. Other factors that can increase symptoms are sleep deprivation, caffeine, nicotine and alcohol use. I recommend ruling out these conditions if not already done. AASM Restless Leg syndrome pamphlet given and reviewed. * Schedule polysomnography * Avoid long distance driving or driving when feeling sleepy. * Avoid alcohol, sedative and muscle relaxant around bedtime. * Attempt to lose weight. * Follow up with PCP for further evaluation of RLS symptoms. * Review instructions provided by trained office staff on how to prepare for the sleep study. * Return for follow-up after sleep study completed. Time Spent with Patient (minutes): 40 I spent 100% of this visit face to face with the patient with greater than 50% of this was spent time counseling the patient and coordination of care.
== END 2019-11-05 12:47 | disposition home or self-care (01) ==
LOC: SC 12:46
PROVIDERS: ATTEND Nurse Practitioner Family
DX: G47.33 Obstructive sleep apnea (adult) (pediatric) (principal); G25.81 Restless legs syndrome; E66.3 Overweight; Z68.29 Body mass index [BMI] 29.0-29.9, adult
CPT/HCPCS: 99204; 99212

== ENCOUNTER 2019-11-11 20:19 | Outpatient (CLI) | payer OTHER | END 2019-11-11 20:20 | disposition home or self-care (01) | LOC: SC 20:19 | PROVIDERS: ATTEND Internal Medicine Pulmonary Disease | DX: G47.33 Obstructive sleep apnea (adult) (pediatric) (principal); G47.61 Periodic limb movement disorder; E66.3 Overweight; Z68.29 Body mass index [BMI] 29.0-29.9, adult | CPT/HCPCS: 95810 ==

== ENCOUNTER 2019-12-11 11:24 | Outpatient (CLI) | payer OTHER ==
--- NOTE | 2019-12-11 14:35 | SLEEP CARE CONSULTATION ---
Information from patient questionnaire entered by Negrita Mccarthy. I have reviewed and concur with the information entered by Negrita Mccarthy. This document represents the service I personally performed and the decisions made by me, Adonay Masterson MD, [facility]. History of Present Illness Initial Montrose Sleepiness Scale score: 15 Current Montrose Sleepiness Scale score: 12 Additional HPI information: HPI: Mr. Segura returned for follow up of the sleep study he had on 11/11/2019. The polysomnography showed that the patient had normal sleep efficiency. The sleep architecture was abnormal for sleep fragmentation and reduced amount of time spent in slow wave sleep (N3). Respiratory monitoring showed mild obstructive sleep apnea-hypopnea (AHI = 8.5) associated with frequent arousals, oxyhemoglobin desaturation and mild hypoxia (kristin oxygen saturation of 85%). The respiratory events occurred mainly during supine sleep (supine AHI = 12.3; non-supine = 6.34). Snore was loud in intensity. There was mild periodic leg movement of sleep not contributing to the sleep fragmentation.. Cardiac rhythm was normal sinus rhythm without significant arrhythmia. No abnormal behavior (parasomnia) observed during the night. The patient was informed of these findings. I explained to him the pathophysiology behind obstructive sleep apnea. We then spent quite a bit of time discussing different treatment options. For mild obstructive sleep apnea, surgery and oral appliance are alternatives to nasal CPAP therapy but in moderate or severe cases, nasal CPAP is the most effective and reliable treatment. Weight loss in an obese individual is strongly recommended. After some discussion, he opted return to using a CPAP again (he used one almost 10 years ago). Allergies and Home Medications Drug allergies reviewed: Yes Home medication list reviewed: Yes Review of Systems Review of systems same as previous: Yes Physical Exam Vital signs obtained and entered by: Physical exam is deferred because the Coronavirus epidemic. Height: 6 ft 1.8 in Impression and Plan IMPRESSION: 1. Obstructive Sleep Apnea-Hypopnea Syndrome, mild, associated with mild hypoxemia and sleep fragmentation. Possibly, this is the cause of the patients symptoms of unrefreshed sleep, and excessive daytime sleepiness. As mentioned above, the patient will be started on an autoCPAP set between 6 and 12 cmH2O (his manual CPAP/BiPAP titration study in 2010 showed 9 cmH2O to be optimal). PLAN: 1. Prescription made for an autoCPAP, heated humidifier, and related supplies. 2. Attempt to lose weight and avoid alcohol consumption near bedtime. 3. The patient is again cautioned about driving until his sleepiness completely resolves on the CPAP therapy. 4. Return in six weeks for follow up. I will assess his response and compliance at that time. I spent 100% of this visit face to face with the patient with greater than 50% of this was spent time counseling the patient and coordination of care.
== END 2019-12-11 11:25 | disposition home or self-care (01) ==
LOC: SC 11:24
PROVIDERS: ATTEND Internal Medicine Pulmonary Disease
DX: G47.33 Obstructive sleep apnea (adult) (pediatric) (principal)
CPT/HCPCS: 99212; 99213

== ENCOUNTER 2020-02-28 13:46 | Outpatient (CLI) | payer OTHER ==
[2020-02-28 14:11] VITALS: BP 118/80
--- NOTE | 2020-02-28 14:11 | SLEEP CARE CONSULTATION ---
Information from patient questionnaire entered by Negrita Mccarthy. I have reviewed and concur with the information entered by Negrita Mccarthy. This document represents the service I personally performed and the decisions made by me, Felicia Llanos, RN, MSN, [employer]. History of Present Illness Service Date and Time: 02/28/2020 1330 Previous diagnosis: Mild, Obstructive Sleep Apnea-Hypopnea Syndrome AHI: 8.5 (in 2019)(8.9 in 2009) Reason for follow up: first compliance after device update Equipment type: CPAP Equipment obtained from: [employer] (getting supplies okay) Mask style: Full face Backup mask available: No (keep old mask as a spare when replaced) Last cushion change: about 3 weeks ago Prior sleep studies: Yes Year and Where: 2019 and 2009 - [facility] Type of Sleep Study: Polysomnography CPAP Compliance Data - Data Reviewed with Patient Average duration of nightly device use: 5.75 Compliance rate %: 76.7 Current pressure setting (cmH2O): 6-12 Humidity settin Heated hose settin Average residual AHI: 3.7 (90% pressure 7.9cmH20 and median 6.6cmH20. ) Average large leak: 2 min 12 sec Subjective Patient concerns: reports: aerophagia (awakens to burp 4-5 times after use of CPAP while reading. ), mask leak noise (a few times a night ), condensation in mask/hose, dry mouth, nose, throat (occasional dry mouth or throat a few times since start of new CPAP / drooling ), other (pulling off mask about 1 time a week due to condensation, tickle on nose, air leaks ). denies: mask discomfort, air blowing in eyes, nasal congestion, epistaxis Observed to snore while using device: No Current pressure setting perceived as: too low (initially) On therapy, patient: reports: sleeping better, more rested overall, other (he wakes to pain about 12 times a night or 2-3 times an hour to change positon due arm pain. seen specialists last year / no surgery). denies: drowsiness while driving Initial [place] Sleepiness Scale score: 15 (in 2019)(13 in 2009) Current [place] Sleepiness Scale score: 13 Allergies and Home Medications Home medication list reviewed: No (no changes stated) Review of Systems Review of systems same as previous: Yes Physical Exam Blood Pressure: 118/80 Cuff size: long Heart Rate: 73 O2 Saturation: 98 Height: 6 ft 1.8 in Weight: 236 lb (with fatigues and boots) Body Mass Index: 30.4 BMI Classification: Obese Impression and Plan 1. Obstructive Sleep Apnea-Hypopnea Syndrome, mild, with good treatment compliance and good apnea control. On CPAP therapy, the patient has better sleep quality and is more rested overall. However, he is experiencing aerophagia and air hunger initially so I will adjust his autoCPAP pressure to 7-8 cmH20. Questions answered about ramp feature. If no resolution of aerophagia or pressure change uncomfortable, he is to contact this office. For condensation in mask, the heated hose can be used a low setting. If moisture is due to drooling, then he may need to increase setting on the humidity. Patient verbally instructed how to change settings, more information can be obtained if needed from his DME. For mask concerns, he can check with [facility] to see if another mask cushion size may better fit. I also discussed following up with his PCM in regard to a CPAP battery prescription and costs given for out of pocket. His BMI is 29 without fatigues and boots at home weight. Patient informed of health risks of obesity. When looked at chart, patient stated when he was at normal weight range, he looked skinny. Patient informed that BMI is a guideline to discuss goals with PCM. Priority is that his abdominal girth is normal to reduce health risks. Patient's apnea severity and rationale for treatment to reduce apnea, improve sleep quality and reduce cardiovascular and cerebrovascular events was reviewed. I also reviewed the benefit of consistent device use of CPAP for hypertension. He retires next year so advised to contact this office to be seen prior to move so no lapse in supplies. Questions re [facility] directed to [facility] desk. Because his sleep is disrupted frequently by arm pain, he is advised to seek re-evaluation. * * Changeauto CPAP pressure to 7-8 cmH2O * Adjust heated hose / humidity * Contact [facility] re mask issues * Notify me if snoring with mask or feeling that the pressure is too much or too little * Attempt to lose weight * Call this office if any problems using CPAP * Follow up with PCP for referral for re evaluation of bilateral arm pain disrupting sleep. * Return for follow up in 1 year , or sooner if concerns arise Visit Type: In Office Time Spent with Patient (minutes): 35 Provider Statement: I spent 100% of the Face to Face Visit with the patient with greater than 50% spent counseling the patient and coordination of care.
== END 2020-02-28 13:47 | disposition home or self-care (01) ==
LOC: SC 13:46
PROVIDERS: ATTEND Nurse Practitioner Family
DX: G47.33 Obstructive sleep apnea (adult) (pediatric) (principal); E66.9 Obesity, unspecified; Z68.29 Body mass index [BMI] 29.0-29.9, adult
CPT/HCPCS: 99212; 99214

== ENCOUNTER 2020-06-26 07:15 | Outpatient (CLI) | payer OTHER ==
[2020-06-26] MEDS ORDERED: GADOBUTROL 10 MMOL/10 ML VIAL ONE (08:56)
[2020-06-26] MEDS ORDERED: GADOBUTROL 10 MMOL/10 ML VIAL IVP ONE (09:00)
--- NOTE | 2020-06-26 10:52 | MRI Report ---
PROCEDURE: Knee LT W/O INDICATIONS: LT EAR HEARING LOSS, TINNITUS, LT KNEE PAIN TECHNIQUE: Noncontrast sagittal PD fast spin echo and T2 fast spin echo with fat saturation, sagittal 3-D gradie nt sequence with fat saturation; coronal T1 spin echo and PD fast spin echo with fat saturation, and axial PD fast spin echo with fat saturation through the knee. COMPARISON: None. FINDINGS: Image quality: Excellent. Menisci: There is an oblique tear involving posterior horn of medial meniscus extending to the inferi or articulating surface. There is no focal lateral meniscal tear. The meniscal root ligaments appear intact. Cruciate ligaments: The anterior and posterior cruciate ligaments appear intact. Medial structures: The medial collateral ligament appears intact. The posterior oblique ligament, s emimembranosus tendon insertions, and oblique popliteal ligament, and meniscocapsular junction appear intact. Visualized portions of the pes anserinus tendons appear normal. No abnormal bursal fluid. Lateral structures: The lateral collateral ligament, long and short heads of the biceps femoris tend on appear intact. The popliteus tendon appears normal; the popliteofibular ligament appears intact. The posterosuperior and anteroinferior popliteomeniscal fascicles appear intact. The arcuate and fa bellofibular ligaments appear intact, around the lateral inferior geniculate artery. Iliotibial band appears normal. Anterior structures: Nonspecific mild soft tissue edema along the anterior aspect of patella tendon is seen. The quadriceps and patellar tendons appear intact. Patellar alignment is normal. No femora l trochlear dysplasia or ventral trochlear prominence. No edema in the infrapatellar fat pad. Bones and cartilage: No bone marrow contusions or fractures. The cartilage of the medial and latera l femorotibial compartments, as well as the patellofemoral compartment, appears normal in thickness. Joint space: There is physiologic knee joint fluid. No Jameson?s cyst. Normal appearing synovial pli are incidentally noted. IMPRESSION: 1. Oblique tear involving posterior horn of medial meniscus extending to the inferior articulating howard rface. No focal lateral meniscal tear. 2. Cruciate ligaments are intact. 3. Nonspecific mild soft tissue edema along the anterior aspect of patellar tendon. Patellar tendon i s intact. Distal quadriceps tendon is intact. 4. No marrow edema. No fracture or dislocation. Articulating cartilages are intact. Reviewed by: Patricio Ruff MD on 06/26/2020 10:50 AM PDT Approved by: Patricio Ruff MD on 06/26/2020 10:50 AM PDT Station ID: [id number]
--- NOTE | 2020-06-26 11:36 | MRI Report ---
PROCEDURE: IACS W/WO INDICATIONS: LT EAR HEARING LOSS, TINNITUS, LT KNEE PAIN CONTRAST: IV CONTRAST: Gadavist ml: 10 TECHNIQUE: Noncontrast sagittal T1 spin echo, axial FLAIR, axial gradient echo, axial diffusion and ADC through the brain. Axial thin-slice 3D CISS, coronal balanced GE, axial T1 spin echo with fat saturation thr ough the internal auditory canals. After the administration of contrast, thin slice axial and avila l T1 spin echo with fat saturation through the internal auditory canals, and axial T1 spin echo with fat saturation through the brain. COMPARISON: None. FINDINGS: Image quality: Excellent. Cerebellopontine angles: No cerebellopontine angle masses. Inner ear structures appear normally for med. No suspicious enhancement in the internal auditory canal or along the course of the 7th cranial nerve. CSF spaces: Ventricles are normal in size and shape. No extra-axial fluid collections. Basal ciste rns are patent. Brain: No intracranial bleeds or mass effects. Cobb-white matter interface is intact. No abnormal intracranial enhancement. Diffusion weighted images demonstrate no acute ischemic insults. Brainste m appears normal. Normal intravascular flow voids are present. Skull and face: Calvarial marrow signal is normal. Orbits appear normal. Sinuses: Moderate bilateral maxillary sinus mucosal thickening with mild bilateral ethmoid air cell a nd sphenoid sinus mucosal thickening. IMPRESSION: No acute intracranial finding or abnormal intracranial enhancement. No explanation for left hearing l oss or left-sided tinnitus. Mild paranasal sinus inflammatory changes. Reviewed by: Raymond Jung MD on 06/26/2020 11:34 AM PDT Approved by: Raymond Jung MD on 06/26/2020 11:34 AM PDT Station ID: [id number]
== END 2020-06-26 07:16 | disposition home or self-care (01) ==
LOC: DI 07:15
PROVIDERS: ATTEND Student in an Organized Health Care Education/Training Program
DX: S83.242A Other tear of medial meniscus, current injury, left knee, initial encounter (principal); R42 Dizziness and giddiness; H91.92 Unspecified hearing loss, left ear; H93.12 Tinnitus, left ear
CPT/HCPCS: 70543; 73721; A9585